=== PATIENT | female | born 1945 | race Hispanic/Latino ===

== ENCOUNTER 2018-08-20 13:24 | Outpatient (RCR) | payer MEDICARE | END 2018-09-12 | LOC: PT 13:24 | PROVIDERS: ATTEND Specialist | DX: M47.812 Spondylosis without myelopathy or radiculopathy, cervical region (principal); M17.0 Bilateral primary osteoarthritis of knee; M79.621 Pain in right upper arm; M62.81 Muscle weakness (generalized); R26.2 Difficulty in walking, not elsewhere classified ==